=== PATIENT | female | born 1970 | race Two or more races ===

== ENCOUNTER 2024-05-10 21:57 | Emergency (ER) | payer OTHER, BC ==
[~2024-05-10] VITALS: Ht 175.3 cm; Wt 124.7 kg
[~2024-05-10 21:57] MED LIST: ACET325 PO; CALCA600CH PO; CEFD300 PO; CEPH500 PO; CETI10 PO; CODACE30 PO; EXPECTA LIPIL PO; FAMO20 PO; LEVSOD125 PO; LEVSOD75 PO; METF500 PO; MUCINEX PO; PRED20 PO; PRENZ PO
[2024-05-10 22:00] VITALS: BP 134/85
[2024-05-11] MEDS ORDERED: Prinivil10 MG PO (00:12)
[2024-05-11] MEDS ORDERED: LEVO-T125 MC1 PO (00:13)
[2024-05-11] MEDS ORDERED: MetroNIDAZOLE 500 MG Tab PO ONE (00:25)
[2024-05-11] MEDS ORDERED: Trimethoprim/Sulfamethoxazole DS Tab PO ONE (00:25)
[2024-05-11] MEDS ORDERED: METR500 PO (00:32)
[2024-05-11] MEDS ORDERED: DOXY100 PO (00:32)
== END 2024-05-11 00:50 | disposition home or self-care (01) ==
LOC: ER 21:57
DX: S61.254A Open bite of right ring finger without damage to nail, initial encounter (principal); E03.9 Hypothyroidism, unspecified; W54.0XXA Bitten by dog, initial encounter; Z79.899 Other long term (current) drug therapy; Z88.0 Allergy status to penicillin; Z91.040 Latex allergy status; Z88.8 Allergy status to other drugs, medicaments and biological substances
CPT/HCPCS: 12001; 99282-25; A9270